=== PATIENT | female | born 1960 | race Caucasian/White ===

== ENCOUNTER 2017-08-18 07:37 | Day surgery (SDC) | payer OTHER ==
[~2017-08-18] VITALS: Ht 167.6 cm; Wt 94.5 kg
[~2017-08-18 07:37] MED LIST: OMEP20CA16 PO; TRAM50TA2 PO; ZOLP5TAB7 PO
[2017-08-18 08:32] VITALS: Ht 167.6 cm; Wt 94.5 kg
[2017-08-18] MEDS ORDERED: FENTAnyl 50 MCG/ML VIAL ONE (09:34)
[2017-08-18] MEDS ORDERED: MIDAZOLAM 1 MG/ML 2 ML INJ ONE ×2 (09:34)
--- NOTE | 2017-08-18 09:40 | OPPN ---
Date/Time of Note Date/Time of Note DATE: 08/18/17 TIME: 09:36 Proc Note GI Procedure Date 08/18/17 Indication: diagnostic Pre-procedure Diagnosis gerd r/o barretts Post-procedure Diagnosis mild gerd mild gastritis mid gastric bodybpolyp polyp with erosion in antrum Procedure Performed: Endoscopy Surgeon see signature line Bread Baker none Anesthesia Type: moderate sedation Tourniquet Time none EBL none Transfusion required none Biopsy 1: stomach and esophagus Grafts/Implants none Tubes/Drains none Complication(s) none Disposition: home Procedure Description egd done with modc sedation mild gerd antral polyp[see dict] mid body polyp mild gastritis LAURA GATES MD Aug 18, 2017 09:40
--- NOTE | 2017-08-18 09:40 | OPPN ---
Date/Time of Note Date/Time of Note DATE: 08/18/17 TIME: 09:36 Proc Note GI Procedure Date 08/18/17 Indication: diagnostic Pre-procedure Diagnosis gerd r/o barretts Post-procedure Diagnosis mild gerd mild gastritis mid gastric bodybpolyp polyp with erosion in antrum Procedure Performed: Endoscopy Surgeon see signature line Automotive Service Consultant none Anesthesia Type: moderate sedation Tourniquet Time none EBL none Transfusion required none Biopsy 1: stomach and esophagus Grafts/Implants none Tubes/Drains none Complication(s) none Disposition: home Procedure Description egd done with modc sedation mild gerd antral polyp[see dict] mid body polyp mild gastritis LAURA GATES MD Aug 18, 2017 09:40
[2017-08-18 10:05] VITALS: BP 96/66; RESP 14
--- NOTE | 2017-08-18 10:52 | GILP ---
DATE OF PROCEDURE: PROCEDURE: Esophagogastroduodenoscopy PREOPERATIVE DIAGNOSIS: The patient presenting with a history of chronic heartburn unresponsive to omeprazole. Rule out peptic ulcer disease, esophagitis, Baires's esophagus. POSTOPERATIVE DIAGNOSES: 1. Mild reflux esophagitis. 2. A polyp was noted and a wide stalk in the antrum. With erosion on the top of this polyp noted. Biopsy was done, polyp was located in the antrum. Multiple biopsies were obtained. Duodenum appea red normal. DESCRIPTION OF PROCEDURE: After the informed written consent was obtained, the patient was asked to lie on the left lateral side. The patient was given 3 mg Versed and 50 mcg of fentanyl as intraven ous anesthesia. When the patient became somnolent, the Olympus video upper endoscope was introduced into the oropharynx, then into the esophagus. Esophagus showed evidence of minimal erythema above the GE junction. Multiple biopsies were obtained to rule out eosinophilic esophagitis. Scope at th is time was advanced into the stomach. Stomach showed evidence of a polypoid fold. This is measuri ng about 2 cm in length. There is a wide stalk noted structure, and erosion noted on the top of this polyp. Multiple biopsies were obtained to rule out lymphoma. Rest of the stomach showed ev idence of thickened folds in the fundus of the stomach. There is a polyp noted in the mid body of t he stomach. Biopsy was done from this polyp. Also, biopsies were done from the antrum, the lesser curvature and the fundus to rule out H. pylori infection. Mucosa of the duodenum appeared normal up to the end of the third portion. Scope at this time was withdrawn and on the way out, no additiona l abnormalities detected and the procedure was terminated. PLAN: Recommend wait for the pathology report. Continue omeprazole. Dictated By: LAURA MASSEY/ZACK Conf#: [id number] DID#: [id number] CC: Sandhya Robertson MD;*EndCC*
== END 2017-08-19 08:26 | disposition home or self-care (01) ==
LOC: GIL 07:37
PROVIDERS: ATTEND Internal Medicine Gastroenterology
DX: K21.0 Gastro-esophageal reflux disease with esophagitis (principal); K31.7 Polyp of stomach and duodenum
CPT/HCPCS: 43239; 88305; 88312; J2250; J3010; Z7610; 88313